=== PATIENT | male | born 1960 | race Two or more races ===

== ENCOUNTER 2022-03-06 11:37 | Outpatient (CLI) | payer OTHER | END 2022-03-06 23:59 | disposition home or self-care (01) | LOC: LAB 11:37 | PROVIDERS: ATTEND Specialist | DX: Z01.812 Encounter for preprocedural laboratory examination (principal); Z20.822 Contact with and (suspected) exposure to COVID-19 | CPT/HCPCS: C9803; U0003 ==

== ENCOUNTER 2022-03-13 05:10 | Inpatient (IN) | payer OTHER ==
[~2022-03-13] VITALS: Ht 175.3 cm; Wt 77.6 kg
[~2022-03-13 05:10] MED LIST: ANESTHESIA TRAY IN PYXIS 1 EA TRAY MC ONE
[2022-03-13] MEDS ORDERED: FENTANYL PF 250MCG/5ML AMPUL ONE (06:38)
[2022-03-13] MEDS ORDERED: ROCURONIUM BROMIDE 50 MG/5 ML ONE (06:39)
[2022-03-13] MEDS ORDERED: EPINEPHRINE (1:1000) 1 MG/ML AMPUL ONE (06:42)
[2022-03-13] MEDS ORDERED: BUPIVACAINE 0.5 % PF 150 MG/30 ML VIAL ONE (06:42)
[2022-03-13 06:51] VITALS: BP 144/74
[2022-03-13] MEDS ORDERED: LABETALOL HCL IV 100MG VIAL ONE (07:19)
[2022-03-13] MEDS ORDERED: methylPREDNISolone ACETATE 80 MG/ML VIAL ONE (07:28)
[2022-03-13] MEDS ORDERED: HYDROMORPHONE 1 MG/1 ML DISP.SYRIN ONE (08:01)
[2022-03-13] MEDS ORDERED: MENTHOL/CETYLPYRD (CEPACOL) 1 LOZ LOZENGE ONE (08:01)
--- NOTE | 2022-03-13 08:55 | NUR ---
RN NOTES RECEIVED PT FROM O.R. STAFF VIA BED, PT IS AWAKE, ALERT AND ORIENTED, WITH COMPLAINT OF PAIN TO RIGHT SHOULDER, DRESING DRY AND INTACT, ASSISTED WITH URINAL USE, NOT IN DISTRESS, VITALS TAKEN AND RECORDED, POST OP ORDERS RECEIVED, KEPT PT COMFORTABLE, CALL LIGHT WITHIN REACH.
[2022-03-13 08:56] VITALS: BP 140/79
[2022-03-13] MEDS ORDERED: LOSA25TA27 PO (09:38)
[2022-03-13] MEDS ORDERED: ROSU20TA32 PO (09:38)
[2022-03-13 10:00] VITALS: BP 153/95
[2022-03-13] MEDS ORDERED: HYDROCODONE/APAP 5/325MG TABLET PO PRN ×2 (10:00)
--- NOTE | 2022-03-13 10:00 | NUR ---
RN NOTES PT COMPLAINED OF LEFT SHOULDER PAIN, NORCO GIVEN ORDERED, SNACKS GIVEN, NEEDS ATTENDED.
--- NOTE | 2022-03-13 13:30 | NUR ---
RN MS NOTES PT IN BED, AWAKE, ALERT AND ORIENTED, NO COMPLAINT OF PAIN AT THIS TIME, ASSISTED PT TO BATHROOM, WITH SLOW AND STEADY GAIT, NO BLEEDING NOTED TO SURGICAL SITE AT RIGHT SHOULDER, NEEDS ATTENDED.
--- NOTE | 2022-03-13 15:00 | NUR ---
RN MS NOTES PT COMPLAINED OF NOT BEING ABLE TO VOID DESPITE THE URGE, ENCOURAGED INCREASED FLUID INTAKE, VERBALIZED UNDERSTANDING, ABLE TO URINATE ONLY ABOUT 100ML, NO OTHER COMPLAINT NOTED, WILL CONTINUE TO MONITOR.
[2022-03-13 16:00] VITALS: BP 184/106
--- NOTE | 2022-03-13 16:30 | NUR ---
RN MS NOTES PT STILL UNABLE TO VOID, NOTED WITH BLADDER DISTENTION, NO COMPLAINT OF BLADDER PAIN, BLADDER SCAN DONE, SHOWED 600ML URINE, CALLED OFFICE OF DR. LINDSEY, RECEIVED ORDER FROM JUANITO WALSH FOR DR. LINDSEY TO PERFORM STRAIGHT CATH AND IF PT STILL UNABLE TO URINATE BY HIMSELF, MAY CONSULT HOSPITALIST FOR FURTHER MANAGEMENT, ORDER CARRIED OUT, PT VERBALIZED RELIEF AND WILL CONTINUE TO MONITOR.
[2022-03-13 18:45] VITALS: BP 136/69
--- NOTE | 2022-03-13 18:45 | NUR ---
RN MS NOTES PT IN BED, RESTING, NO COMPLAINT OF PAIN, STATED THAT HE DOES NOT HAVE THE FEELING OF WANTING TO VOID, ENCOURAGED FLUID INTAKE, PT INFORMED THAT HE NEEDS TO VOID ON HIS OWN BEFORE GETTING DISCHARGED HOME, VERBALIZED UNDERSTANDING, PT COMPLIANT WITH CARE AND INTERVENTION.
[2022-03-13 20:00] VITALS: BP 134/67
--- NOTE | 2022-03-13 20:36 | NUR ---
MS/TELE/RN AT INITIAL SHIFT ROUND, PATIENT WAS IN BED AWAKE, ALERT, ORIENTED, COMFORTABLE, NO C/O PAIN, NO DISTRESS NOTED, VERBALISED THAT HE IS GOING HOME AFTER HE VOIDED. MONITOR FOR VOIDING AND WILL D/C HOME ORDERED.
--- NOTE | 2022-03-13 23:32 | NUR ---
MS/TELE/RN AT 2220, PER PATIENT HE IS STILL UNABLE TO URINATE, BLADDER SCAN DONE, 290 MLS VALUE, PATIENT WAS A LITTLE ANXIOUS ABOUT BEING UNABLE TO VOID. NOTIFIED DR. DEBBI CORTEZ, ORDERS TO DO STRAIGHT CATH AND KEEP THE PATIENT TONIGHT WERE RECEIVED. PATIENT C/O OF NOT BEING COMFORTABLE AND REQUESTED HAVE THE URINE IN HIS BLADDER REMOVED, STRAIGHT CATH WAS DONE WITH 500 MLS. OF [place] CLEAR URINE OUTPUT WAS NOTED. PATIENT VERBALISED RELIEF AFTER THE PROCEDURE. WILL CONTINUE TO MONITOR PATIENT.
--- NOTE | 2022-03-14 05:10 | NUR ---
MS/TELE/RN PATIENT UNABLE TO URINATE AND VERBALISED VERY UNCOMFORTABLE. OBTAINED ORDER FOR F/C INSERTION FROM DR. DEBBI TREJO. SUCCESSFULLY INSERTED F/C Fr. 16, USING ASEPTIC TECHNIQUE, WITH 900 MLS. CLEAR, YELLOW COLOR URINE OUTPUT. PER PATIENT, HE FEELS BETTER NOW. WILL CONTINUE TO MONITOR.
--- NOTE | 2022-03-14 06:51 | NUR ---
MS/TELE/RN PATIENT IS SLEEPING AT THIS TIME, APPEAR COMFORTABLE, NO SIGN OF DISTRESS NOTED, CALL LIGHT IN REACH, ALL NEEDS ATTENDED AT THIS TIME, WILL CONTINUE TO MONITOR.
--- NOTE | 2022-03-14 07:53 | NUR ---
RN OPENING NOTE PATIENT RECEIVED IN BED, AO X 4, ABLE TO RESPONDS ALL STIMULI. IN NO ACUTE DISTRESS NOTED. RESPIRATORY EVEN AND UNLABORED ON ROOM. SKIN IS WARM TO TOUCH, KEEP CLEAN/DRY, INTACT IV SITE. TRAVIS CONNECTING TO URINE BAG, LIGHT YELLOW IN COLOR. KEPT ELEVATED HOB FOR ENSURE AIRWAY AND ASPIRATION PRECAUTION, ALSO LOWEST POSITION OF THE BED, S/R UP X 2, ALL SAFETY PRECAUTION APPLIED. CALL LIGHT WITHIN REACH, WILL CONTINUE TO MONITOR.
[2022-03-14 08:00] VITALS: BP 117/65
--- NOTE | 2022-03-14 11:00 | NUR ---
PATIENT HAVING DIFFICULTY URINATE AFTER SURGERY AND STAYED OVER THE NIGHT, DR. LINDSEY MADE AWARE THAT PATIENT STILL IN THE FACILITY.
[2022-03-14 16:00] VITALS: BP 148/96
[2022-03-14] MEDS: ATORVASTATIN 40 MG TABLET PO SCH (17:24)
[2022-03-14] MEDS: LOSARTAN POTASSIUM 25 MG TABLET PO SCH (17:24)
--- NOTE | 2022-03-14 18:54 | NUR ---
RN CLOSE NOTE PATIENT IN BED, IN NO ACUTE DISTRESS OBSERVED. RESPIRATION EVEN AND UNLABORED ON ROOM AIR. SKIN IS WARM TO TOUCH KEEP CLEAN//DRY, INTACT NEW IV SITE. PATIENT HAS NO URINATE SINCE BEEN D/C TRAVIS, BUT REFUSED STRAIGHT CATH. KEPT ELEVATED HOB FOR ENSURE AIRWAY AND ASPIRATION PRECAUTION. ALSO LOWEST POSITION OF THE BED FOR SAFETY. CALL LIGHT WITHIN REACH, WILL ENDORSE TO CLAIMS SERVICE REPRESENTATIVE.
--- NOTE | 2022-03-14 19:35 | NUR ---
RN NOTES RECEIVED PATIENT AWAKE ON BED, A/OX4, SON AT BEDSIDE, PATIENT TRYING TO VOID BY HIMSELF SO HE CAN GO HOME, PT. DENIES PAIN, NO SOB, CALL LIGHT WITHIN REACH, [id number], WILL CONTINUE TO MONITOR
[2022-03-14 20:34] VITALS: BP 141/104
--- NOTE | 2022-03-14 20:49 | NUR ---
RN NOTES PATIENT IS HAVING DIFFICULTY OF URINATING, HE WAS RETAINING, DID BLADDER SCANNER -IT WAS MORE THAN 900ML , PATIENT WAS REFUSING OF IN AND OUT,INFORMED DR. JOHNSON AND GOT AN ORDER OF TRAVIS CATHETER, ORDER NOTED AND CARRIED OUT
--- NOTE | 2022-03-15 06:37 | NUR ---
RN NOTES PT. IS COMPLAINING FOR HYPERACIDITY, WAITING FOR DR. WERNER TO CALL BACK
--- NOTE | 2022-03-15 06:59 | NUR ---
RN NOTES GOT AN ORDER OF MAALOX FROM DR. GARCIA FOR HYPERACIDITY, ORDER NOTED AND CARRIED OUT
[2022-03-15] MEDS ORDERED: MAG HYDROX/AL HYDROX/SIMETH 30 ML UDC PO PRN (07:00)
--- NOTE | 2022-03-15 07:00 | NUR ---
MS RN OPENING NOTES PATIENT IN BED, A/O X 4, TOLERATING WELL ON ROOM AIR WITH NO S/S OF RESPIRATORY DISTRESS. BREATHING EVEN AND UNLABORED WITH NO S/S OF PAIN OR DISCOMFORT AT THIS TIME. L FA # 20 CLEAN, INTACT AND FLUSHING WELL. PATIENT WITH TRAVIS CATHETER IN PLACE DRAINING CLEAR YELLOW URINE TO GRAVITY. SAFETY MEASURES IN PLACE: BED IN LOWEST LOCKED POSITION, SIDE RAILS UP X 2, CALL LIGHT WITHIN REACH, HOB ELEVATED. WILL CONTINUE TO MONITOR.
--- NOTE | 2022-03-15 07:10 | NUR ---
RN NOTES MAALOX 30ML P[O WAS GIVEN FOR HYPERACIDITY, PT. NEEDS ATTENDED
[2022-03-15 08:55] VITALS: BP 165/91
[2022-03-15] MEDS: LOSARTAN POTASSIUM 25 MG TABLET PO SCH (09:04)
[2022-03-15] MEDS ORDERED: IV NS 0.9% 1,000 ML IV ONE (10:00)
[2022-03-15 10:56] LABS: BASOPHILS % (AUTO) 0.2 % (0.0-2.0); HEMATOCRIT 40 % (39-51); HEMOGLOBIN 13.8 g/dL (13.5-17.5); LYMPHOCYTES # (AUTO) 1.3 K/uL (0.8-4.8); LYMPHOCYTES % (AUTO) 14.3 % (20.0-44.0); MEAN CORPUSCULAR HGB CONC 35 g/dl (31.0-36.0); MEAN CORPUSCULAR VOLUME 91 fL (80-96); MONOCYTES # (AUTO) 1.1 K/uL (0.1-1.30); MONOCYTES % (AUTO) 12.1 % (2.0-12.0); NEUTROPHILS # (AUTO) 6.8 K/uL (1.8-8.9); NEUTROPHILS % (AUTO) 73.4 % (43.0-81.0); PLATELET COUNT (AUTO) 236 K/uL (150-450); WHITE BLOOD COUNT (AUTO) 9.2 K/uL (4.3-11.0)
[2022-03-15 11:10] LABS: ALBUMIN 3.3 g/dL (3.4-5.0); BILIRUBIN,TOTAL 0.5 mg/dL (0.2-1.0); CALCIUM, SERUM 8.7 mg/dL (8.5-10.1); CREATININE 1.8 mg/dL (0.6-1.3); POTASSIUM 3.6 mmol/L (3.5-5.1); TOTAL PROTEIN, SERUM 7.4 g/dL (6.4-8.2)
[2022-03-15 15:46] VITALS: BP 157/84
--- NOTE | 2022-03-15 19:00 | NUR ---
MS RN CLOSING NOTE PATIENT IN BED, A/O X 4, TOLERATING WELL ON ROOM AIR WITH NO S/S OF RESPIRATORY DISTRESS. BREATHING EVEN AND UNLABORED WITH NO S/S OF PAIN OR DISCOMFORT AT THIS TIME. L FA # 20 CLEAN AND INTACT WITH NS @ 100 ML/HR. TRAVIS CATHETER IN PLACE DRAINING CLEAR YELLOW URINE TO GRAVITY, BED LASTER RN ENDORSED MD ORDER TO REMOVE TRAVIS CATH FOR VOID TRIAL. SAFETY MEASURES IN PLACE: BED IN LOWEST LOCKED POSITION, SIDE RAILS UP X 2, CALL LIGHT WITHIN REACH, HOB ELEVATED. WILL ENDORSE TO BED LASTER FOR CONTINUATION OF CARE.
--- NOTE | 2022-03-15 19:10 | NUR ---
MS/RN OPENING NOTE RECEIVED PATIENT RESTING IN BED. AWAKE, ALERT AND ORIENTED X 4. ABLE TO MAKE NEEDS KNOWN. DENIES PAIN AT THIS TIME. CONTINUES ON ROOM AIR WITH NO S/SX OF RESPIRATORY DISTRESS NOTED. IV ACCESS TO LEFT FOREARM #20G INTACT AND PATENT. CONTINUES ON IVF NS @ 75ML/HR X 1L. TRAVIS CATHETER IN PLACE DRAINING CLEAR, YELLOW URINE TO GRAVITY. URINALYSIS RESULT PENDING. PATIENT IS AMBULATORY WITH ASSIST. CALL LIGHT WITHIN REACH. ASPIRATION, FALL AND SAFETY PRECAUTIONS MAINTAINED. WILL CONTINUE TO MONITOR.
[2022-03-15] MEDS: ATORVASTATIN 40 MG TABLET PO SCH (19:20)
[2022-03-15 20:00] VITALS: BP 150/78
--- NOTE | 2022-03-16 06:10 | NUR ---
MS/RN CLOSING NOTE PATIENT CURRENTLY RESTING IN BED. AWAKE, ALERT AND ORIENTED X 4. ABLE TO MAKE NEEDS KNOWN. DENIES PAIN AT THIS TIME. CONTINUES ON ROOM AIR WITH NO S/SX OF RESPIRATORY DISTRESS NOTED. IV ACCESS TO LEFT FOREARM #20G INTACT, PATENT AND SALINE LOCKED. TRAVIS CATHETER IN PLACE DRAINING CLEAR, YELLOW URINE TO GRAVITY. URINALYSIS RESULT PENDING. PATIENT IS AMBULATORY WITH ASSIST. CALL LIGHT WITHIN REACH. ASPIRATION, FALL AND SAFETY PRECAUTIONS MAINTAINED. WILL ENDORSE PLAN OF CARE TO ONCOMING SHIFT.
[2022-03-16 06:16] LABS: BASOPHILS % (AUTO) 0.5 % (0.0-2.0); EOSINOPHILS % (AUTO) 0.8 % (0.0-6.0); HEMATOCRIT 42 % (39-51); LYMPHOCYTES % (AUTO) 25.5 % (20.0-44.0); MEAN CORPUSCULAR HGB CONC 33 g/dl (31.0-36.0); MEAN CORPUSCULAR VOLUME 91 fL (80-96); MONOCYTES # (AUTO) 1.2 K/uL (0.1-1.30); MONOCYTES % (AUTO) 15.7 % (2.0-12.0); NEUTROPHILS # (AUTO) 4.6 K/uL (1.8-8.9); NEUTROPHILS % (AUTO) 57.5 % (43.0-81.0); PLATELET COUNT (AUTO) 238 K/uL (150-450); RED BLOOD CELL COUNT(AUTO) 4.59 MIL/uL (4.5-6.0); WHITE BLOOD COUNT (AUTO) 7.9 K/uL (4.3-11.0)
[2022-03-16 06:19] LABS: CALCIUM, SERUM 8.6 mg/dL (8.5-10.1); CREATININE 1.9 mg/dL (0.6-1.3); MAGNESIUM 1.9 mg/dL (1.8-2.4); PHOSPHORUS 2.4 mg/dL (2.5-4.9); POTASSIUM 3.7 mmol/L (3.5-5.1)
--- NOTE | 2022-03-16 07:00 | NUR ---
MS RN OPENING NOTES PATIENT IN BED, A/O X 4. TOLERATING WELL ON ROOM AIR WITH NO S/S OF RESPIRATORY DISTRESS. NO COMPLAINTS OF PAIN OR DISCOMFORT AT THIS TIME. L FA # 20 G CLEAN, INTACT, AND FLUSHING WELL. TRAVIS CATHETER IN PLACE DRAINING CLEAR, YELLOW URINE TO GRAVITY. URINALYSIS RESULT PENDING. PATIENT IS AMBULATORY WITH ASSIST. SAFETY MEASURES IN PLACE: BED IN LOWEST LOCKED POSITION, SIDE RAILS UP X 2, CALL LIGHT WITHIN REACH, HOB ELEVATED. WILL CONTINUE TO MONITOR.
[2022-03-16 08:00] VITALS: BP 143/88
[2022-03-16] MEDS: LOSARTAN POTASSIUM 25 MG TABLET PO SCH (09:08)
[2022-03-16] MEDS ORDERED: K PHOS NEUTRAL 250 MG TABLET PO ONE (15:30)
[2022-03-16 16:00] VITALS: BP 147/95
--- NOTE | 2022-03-16 16:00 | NUR ---
MS CLINICAL INTERVIEWER NOTE PATIENT A/O X 4, VS STABLE, ACCOMPANIED BY SON BLACK AT BEDSIDE. PATENT INFORMED OF MD DISCHARGE ORDER AND INSTRUCTIONS. PATIENT VERBALIZED UNDERSTANDING OF MD ORDER AND SIGNED MD DISCHARGE PAPERWORK. PATIENT ALSO VERBALIZED POSSESSION OF ALL BELONGINGS AND SIGNED BELONGINGS SHEET. PATIENT STATED HE WOULD LIKE TO BE DISCHARGED WITH TRAVIS CATHETER IN PLACE UNTIL HIS FOLLOW UP APPOINTMENT WITH HIS UROLOGIST. ATTENDING MD INFORMED AND AWARE. PATIENT PROVIDED WITH LEG BAG WELL TRAVIS CARE SUPPLIES (INCLUDING ALCOHOL WIPES, TAPE, AND GAUZE), AND INSTRUCTIONS FOR USE OF HIS TRAVIS CATHETER WITH NIGHT AND LEG BAGS. URINE WAS EMPTIED FROM INDWELLING TRAVIS (500 ML) AND LEG BAG APPLIED USING ASEPTIC TECHNIQUE. LEG BAG SECURED TO PATIENT. EDUCATIONAL MATERIAL INCLUDING USE OF LEG BAG AND PROPER METHOD OF CLEANING PROVIDED IN DISCHARGE PAPERWORK. PATIENT VERBALIZED UNDERSTANDING OF TRAVIS CATHETER, NIGHT BAG, AND LEG BAG USE, WELL THE RISKS FOR INFECTION. PATIENT RE-STATED HIS DESIRE TO BE DISCHARGED WITH THE TRAVIS CATHETER IN PLACE. TRAVIS CATHETER EXTENSION TUBING AND BAG PLACED IN BAG FOR PATIENT TO TRANSPORT HOME FOR LATER USE. PATIENT TRANSFERRED TO WHEELCHAIR AND TRANSPORTED OFF OF UNIT BY EQUIPMENT SERVICE ENGINEER ACCOMPANIED BY SON (ALSO AWARE OF PROPER TRAVIS USE).
== END 2022-03-16 16:45 | disposition home health service (06) | DRG 502 ==
LOC: DS 05:10 → MED 05:12
PROVIDERS: ADMIT Student in an Organized Health Care Education/Training Program; ATTEND Student in an Organized Health Care Education/Training Program
PROC: 0RQ Upper Joints, Repair (ICD-10-PCS; principal; 2022-03-13)
PROC: 0LB14ZZ Excision of Right Shoulder Tendon, Percutaneous Endoscopic Approach (ICD-10-PCS; 2022-03-13)
DX: M75.41 Impingement syndrome of right shoulder (principal); I10 Essential (primary) hypertension; M75.111 Incomplete rotator cuff tear or rupture of right shoulder, not specified as traumatic; M65.811 Other synovitis and tenosynovitis, right shoulder; E78.5 Hyperlipidemia, unspecified; Z79.899 Other long term (current) drug therapy; R33.9 Retention of urine, unspecified
CPT/HCPCS: 36415; 80048-TC; 80053-TC; 83735-TC; 84100-TC; 84132-TC; 85025-TC; 87081-TC; A4217; G0378; J0171; J0330; J0360; J0690; J1040; J1100; J1170; J2405; J2704; J3010; J3490; J7030; J7050